=== PATIENT | female | born 1985 | race Caucasian/White ===

== ENCOUNTER 2017-02-22 11:12 | Inpatient (IN) | payer OTHER ==
[2017-02-22 11:48] VITALS: BMI 33.5
[2017-02-22] MEDS ORDERED: METHADONE HCL 10 MG TABLET (FOR DETOX USE ONLY) PO ONE ×2 (13:20→23:00)
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
[2017-02-22] MEDS ORDERED: P-EPHED 60MG/TRIPROLIDI 2.5MG TABLET PO PRN (14:25)
[2017-02-22] MEDS ORDERED: MAGNESIUM CITRATE 300 ML BOTTLE PO PRN (14:25)
[2017-02-22] MEDS ORDERED: LOPERAMIDE HCL 2 MG CAPSULE PO PRN (14:25)
[2017-02-22] MEDS ORDERED: NICOTINE POLACRILEX 2 MG GUM BUC PRN (14:25)
[2017-02-22] MEDS ORDERED: MAGNESIUM HYDROX 2400MG/30ML ORAL SUSPENSION 30 ML CUP PO PRN (14:25)
[2017-02-22] MEDS ORDERED: ACETAMINOPHEN 325 MG TABLET (FP) PO PRN (14:25)
[2017-02-22] MEDS ORDERED: guaiFENesin/D-METHORPHAN HB 10 ML UNIT-DOSE CUPS PO PRN (14:25)
[2017-02-22] MEDS ORDERED: diphenhydrAMINE HCL 50 MG CAPSULE PO PRN (14:25)
[2017-02-22] MEDS ORDERED: MAG HYDROX/AL HYDROX/SIMETH 30 ML UNIT-DOSE CUP PO PRN (14:25)
[2017-02-22] MEDS ORDERED: MENTHOL/PHENOL 1 EACH UD MM PRN (14:25)
[2017-02-22] MEDS ORDERED: diazePAM 5 MG TABLET PO ONE (15:19)
[2017-02-22] MEDS ORDERED: METHADONE HCL 10 MG TABLET (FOR DETOX USE ONLY) ONE (15:45)
[2017-02-22] MEDS: hydrOXYzine PAMOATE 50 MG CAPSULE (FP) PO PRN (15:48)
[2017-02-22 18:40] LABS: HIV 1 & 2 AB NEGATIVE; HIV 1 AGp24 NEGATIVE
[2017-02-22 21:56] LABS: URINE APPEARANCE CLOUDY; URINE BILIRUBIN NEGATIVE (NEGATIVE); URINE BLOOD NEGATIVE (NEGATIVE); URINE COLOR YELLOW; URINE GLUCOSE (UA) NEGATIVE (NEGATIVE); URINE KETONE NEGATIVE (NEGATIVE); URINE LEUK ESTERASE NEGATIVE (NEGATIVE); URINE NITRITE NEGATIVE (NEGATIVE); URINE PROTEIN NEGATIVE (NEGATIVE); URINE UROBILINOGEN NEGATIVE mg/dL (0.2-1.0)
[2017-02-22] MEDS: THIAMINE HCL 100 MG TABLET (FP) PO SCH (22:15)
[2017-02-22] MEDS: diazePAM 5 MG TABLET PO SCH (22:15)
[2017-02-23] MEDS: diazePAM 5 MG TABLET PO SCH ×4 (05:08→22:09)
[2017-02-23 09:43] LABS: MCHC 33.5 g/dl (32.0-36.0); MEAN CELL VOLUME 89.5 fl (80-96); MEAN PLT VOLUME 8.8 fl (7.5-11.1); PLATELET COUNT 311 K/MM3 (134-434); RDW 14.5 % (11.6-15.6); WHITE BLOOD COUNT 7.2 K/mm3 (4.0-10.0)
--- NOTE | 2017-02-23 09:57 | EKG ---
Test Reason : Blood Pressure : / mmHG Vent. Rate : 073 BPM Atrial Rate : 073 BPM P-R Int : 144 ms QRS Dur : 074 ms QT Int : 382 ms P-R-T Axes : 055 032 035 degrees QTc Int : 420 ms NORMAL SINUS RHYTHM NORMAL ECG NO PREVIOUS ECGS AVAILABLE Confirmed by NAMAN KRISHNAMURTHY MD ([id number]) on 02/23/2017 9:56:45 AM Referred By: Confirmed By:NAMAN KRISHNAMURTHY MD
[2017-02-23] MEDS ORDERED: METHADONE HCL 10 MG TABLET (FOR DETOX USE ONLY) PO SCH (10:00)
[2017-02-23 10:06] LABS: ALBUMIN 3.7 g/dl (3.4-5.0); ALK PHOS 70 U/L (45-117); ANION GAP 6 (8-16); BILIRUBIN,TOTAL 0.3 mg/dL (0.2-1.0); CALCIUM 8.8 mg/dL (8.5-10.1); CO2 27 mmol/L (21-32); CREATININE 0.7 mg/dL (0.55-1.02); GLUCOSE,RANDOM 73 mg/dL (74-106); SGOT/AST 16 U/L (15-37); SGPT/ALT 44 U/L (12-78); TOT PROT 7.6 g/dl (6.4-8.2)
[2017-02-23] MEDS: diazePAM 5 MG TABLET PO PRN ×2 (10:16→14:35)
[2017-02-23] MEDS: PRENATAL VITAMINS W/ FOLIC ACID TABLET (FP) PO SCH (10:16)
--- NOTE | 2017-02-23 10:19 | PN ---
[facility] CIWA - CIWA Score Nausea/Vomitin Muscle Tremors: 3 Anxiety: 3 Agitation: 2 Paroxysmal Sweats: 1-Minimal Palms Moist Orientation: 0-Oriented Tacttile Disturbances: 1-Very Mild Itch/Numbness Auditory Disturbances: 1-Very Mild Visual Disturbances: 1-Very Mild Sensitivity Headache: 2-Mild CIWA-Ar Total Score: 17 BHS COWS - Scale Resting Pulse: 0= [place] 80 or Below Sweatin= Chills/Flushing Restless Observation: 3= Extraneous Movement Pupil Size: 1= Pupils >than Normal Bone or Joint Aches: 2= Severe Diffuse Aches Runny Nose/ Eye Tearin= Runny Nose/Eyes GI Upset > 30mins: 3= Vomiting/Diarrhea Tremor Observation of Outstretched Hands: 2= Slight Tremor Visible Yawning Observation: 1= 1-2x During Session Anxiety or Irritability: 2=Irritable/Anxious Goose Flesh Skin: 0=Smooth Skin COWS Score: 17 S Progress Note (SOAP) Subjective: alert,irritable,anxious,interrupted sleep,tremor,pain in the body and back Objective: 02/23/17 10:17 Vital Signs Temperature 97.7 F 02/23/17 06:00 Pulse Rate 72 02/23/17 06:00 Respiratory Rate 18 02/23/17 06:00 Blood Pressure 99/69 02/23/17 06:00 O2 Sat by Pulse Oximetry (%) ekg nsr,normal ecg Laboratory Last Values WBC 7.2 K/mm3 (4.0-10.0) 02/23/17 06:00 RBC 4.33 M/mm3 (3.60-5.2) 02/23/17 06:00 Hgb 13.0 GM/dL (10.7-15.3) 02/23/17 06:00 Hct 38.7 % (32.4-45.2) 02/23/17 06:00 MCV 89.5 fl (80-96) 02/23/17 06:00 MCH 30.0 pg (25.7-33.7) 02/23/17 06:00 MCHC 33.5 g/dl (32.0-36.0) 02/23/17 06:00 RDW 14.5 % (11.6-15.6) 02/23/17 06:00 Plt Count 311 K/MM3 (134-434) 02/23/17 06:00 MPV 8.8 fl (7.5-11.1) 02/23/17 06:00 Urine Color Yellow 02/22/17 21:00 Urine Appearance Cloudy 02/22/17 21:00 Urine pH 5.0 (5.0-8.0) 02/22/17 21:00 Ur Specific [place] >= 1.030 (1.005-1.025) H 02/22/17 21:00 Urine Protein Negative (NEGATIVE) 02/22/17 21:00 Urine Glucose (UA) Negative (NEGATIVE) 02/22/17 21:00 Urine Ketones Negative (NEGATIVE) 02/22/17 21:00 Urine Blood Negative (NEGATIVE) 02/22/17 21:00 Urine Nitrite Negative (NEGATIVE) 02/22/17 21:00 Urine Bilirubin Negative (NEGATIVE) 02/22/17 21:00 Urine Urobilinogen Negative mg/dL (0.2-1.0) 02/22/17 21:00 HIV 1&2 Antibody Screen Negative 02/22/17 14:00 HIV P24 Antigen Negative 02/22/17 14:00 labs pending Assessment: 02/23/17 10:18 withdrawal symptom Plan: continue detox
[2017-02-23] MEDS: hydrOXYzine PAMOATE 50 MG CAPSULE (FP) PO PRN (13:15)
--- NOTE | 2017-02-23 13:32 | PN ---
BHS Progress Note Note: patient complaint of epigastric pain, ekg nsr,normal ecg protonix 40 mgs po daily close monitoring
[2017-02-23] MEDS: PANTOPRAZOLE 40 MG TABLET (FP) PO SCH (14:34)
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
[2017-02-23] MEDS: traZODone HCL 50 MG TABLET (FP) PO SCH (22:09)
[2017-02-23] MEDS: THIAMINE HCL 100 MG TABLET (FP) PO SCH (22:10)
[2017-02-24] MEDS: PANTOPRAZOLE 40 MG TABLET (FP) PO SCH (10:17)
[2017-02-24] MEDS: PRENATAL VITAMINS W/ FOLIC ACID TABLET (FP) PO SCH (10:17)
[2017-02-24] MEDS: METHADONE HCL 5 MG TABLET (FOR DETOX USE ONLY) PO SCH (10:17)
[2017-02-24] MEDS: hydrOXYzine PAMOATE 50 MG CAPSULE (FP) PO PRN (10:17)
[2017-02-24] MEDS: diazePAM 5 MG TABLET PO SCH ×2 (10:18→22:23)
--- NOTE | 2017-02-24 10:40 | PN ---
S CIWA - CIWA Score Nausea/Vomitin Muscle Tremors: 3 Anxiety: 3 Agitation: 3 Paroxysmal Sweats: 1-Minimal Palms Moist Orientation: 0-Oriented Tacttile Disturbances: 1-Very Mild Itch/Numbness Auditory Disturbances: 1-Very Mild Visual Disturbances: 1-Very Mild Sensitivity Headache: 2-Mild CIWA-Ar Total Score: 18 BHS COWS - Scale Resting Pulse: 0= [place] 80 or Below Sweatin= Chills/Flushing Restless Observation: 3= Extraneous Movement Pupil Size: 1= Pupils >than Normal Bone or Joint Aches: 2= Severe Diffuse Aches Runny Nose/ Eye Tearin= Runny Nose/Eyes GI Upset > 30mins: 2= Nausea/Diarrhea Tremor Observation of Outstretched Hands: 2= Slight Tremor Visible Yawning Observation: 1= 1-2x During Session Anxiety or Irritability: 2=Irritable/Anxious Goose Flesh Skin: 0=Smooth Skin COWS Score: 16 S Progress Note (SOAP) Subjective: ALERT,IRRITABLE,ANXIOUS,INTERRUPTED SLEEP,PAIN IN THE BODY AND THIGH Objective: 02/24/17 10:40 Vital Signs Temperature 97.7 F 02/24/17 10:32 Pulse Rate 77 02/24/17 10:32 Respiratory Rate 18 02/24/17 10:32 Blood Pressure 102/54 02/24/17 10:32 O2 Sat by Pulse Oximetry (%) Laboratory Last Values WBC 7.2 K/mm3 (4.0-10.0) 02/23/17 06:00 RBC 4.33 M/mm3 (3.60-5.2) 02/23/17 06:00 Hgb 13.0 GM/dL (10.7-15.3) 02/23/17 06:00 Hct 38.7 % (32.4-45.2) 02/23/17 06:00 MCV 89.5 fl (80-96) 02/23/17 06:00 MCH 30.0 pg (25.7-33.7) 02/23/17 06:00 MCHC 33.5 g/dl (32.0-36.0) 02/23/17 06:00 RDW 14.5 % (11.6-15.6) 02/23/17 06:00 Plt Count 311 K/MM3 (134-434) 02/23/17 06:00 MPV 8.8 fl (7.5-11.1) 02/23/17 06:00 Sodium 138 mmol/L (136-145) 02/23/17 06:00 Potassium 4.0 mmol/L (3.5-5.1) 02/23/17 06:00 Chloride 105 mmol/L (98-107) 02/23/17 06:00 Carbon Dioxide 27 mmol/L (21-32) 02/23/17 06:00 Anion Gap 6 (8-16) L 02/23/17 06:00 BUN 8 mg/dL (7-18) 02/23/17 06:00 Creatinine 0.7 mg/dL (0.55-1.02) 02/23/17 06:00 Creat Clearance w eGFR > 60 (>60) 02/23/17 06:00 Random Glucose 73 mg/dL (74-106) L 02/23/17 06:00 Calcium 8.8 mg/dL (8.5-10.1) 02/23/17 06:00 Total Bilirubin 0.3 mg/dL (0.2-1.0) 02/23/17 06:00 AST 16 U/L (15-37) 02/23/17 06:00 ALT 44 U/L (12-78) 02/23/17 06:00 Alkaline Phosphatase 70 U/L (45-117) 02/23/17 06:00 Total Protein 7.6 g/dl (6.4-8.2) 02/23/17 06:00 Albumin 3.7 g/dl (3.4-5.0) 02/23/17 06:00 Urine Color Yellow 02/22/17 21:00 Urine Appearance Cloudy 02/22/17 21:00 Urine pH 5.0 (5.0-8.0) 02/22/17 21:00 Ur Specific [place] >= 1.030 (1.005-1.025) H 02/22/17 21:00 Urine Protein Negative (NEGATIVE) 02/22/17 21:00 Urine Glucose (UA) Negative (NEGATIVE) 02/22/17 21:00 Urine Ketones Negative (NEGATIVE) 02/22/17 21:00 Urine Blood Negative (NEGATIVE) 02/22/17 21:00 Urine Nitrite Negative (NEGATIVE) 02/22/17 21:00 Urine Bilirubin Negative (NEGATIVE) 02/22/17 21:00 Urine Urobilinogen Negative mg/dL (0.2-1.0) 02/22/17 21:00 RPR Titer Nonreactive (NONREACTIVE) 02/23/17 06:00 HIV 1&2 Antibody Screen Negative 02/22/17 14:00 HIV P24 Antigen Negative 02/22/17 14:00 Assessment: 02/24/17 10:41 WITHDRAWAL SYMPTOM Plan: CONTINUE DETOX
[2017-02-24] MEDS: IBUPROFEN 400 MG TABLET (FP) PO PRN (11:32)
--- NOTE | 2017-02-24 13:08 | EKG ---
Test Reason : Blood Pressure : / mmHG Vent. Rate : 061 BPM Atrial Rate : 061 BPM P-R Int : 146 ms QRS Dur : 072 ms QT Int : 390 ms P-R-T Axes : 012 021 027 degrees QTc Int : 392 ms NORMAL SINUS RHYTHM NORMAL ECG WHEN COMPARED WITH ECG OF 22-FEB-2017 15:23, NO SIGNIFICANT CHANGE WAS FOUND Confirmed by NAMAN KRISHNAMURTHY MD ([id number]) on 02/24/2017 1:08:08 PM Referred By: Confirmed By:NAMAN KRISHNAMURTHY MD
[2017-02-24] MEDS: CYCLOBENZAPRINE HCL 10 MG TABLET (FP) PO SCH ×2 (13:43→22:23)
[2017-02-24] MEDS: diazePAM 5 MG TABLET PO PRN (13:43)
[2017-02-24] MEDS: traZODone HCL 50 MG TABLET (FP) PO SCH (22:23)
[2017-02-24] MEDS: THIAMINE HCL 100 MG TABLET (FP) PO SCH (22:23)
[2017-02-25] MEDS: CYCLOBENZAPRINE HCL 10 MG TABLET (FP) PO SCH ×3 (05:52→22:14)
[2017-02-25] MEDS: PANTOPRAZOLE 40 MG TABLET (FP) PO SCH (10:29)
[2017-02-25] MEDS: PRENATAL VITAMINS W/ FOLIC ACID TABLET (FP) PO SCH (10:29)
[2017-02-25] MEDS: METHADONE HCL 5 MG TABLET (FOR DETOX USE ONLY) PO SCH (10:30)
[2017-02-25] MEDS: diazePAM 5 MG TABLET PO SCH ×2 (10:30→22:14)
--- NOTE | 2017-02-25 11:15 | PN ---
BHS Progress Note (SOAP) Subjective: ALERT,IRRITABLE,ANXIOUS,INTERRUPTED SLEEP,PAIN IN THE BODY AND BACK Objective: 02/25/17 11:14 Vital Signs Temperature 97.5 F L 02/25/17 11:05 Pulse Rate 81 02/25/17 11:05 Respiratory Rate 20 02/25/17 11:05 Blood Pressure 88/58 02/25/17 11:05 O2 Sat by Pulse Oximetry (%) Assessment: 02/25/17 11:14 WITHDRAWAL SYMPTOM Plan: CONTINUE DETOX
[2017-02-25] MEDS: IBUPROFEN 400 MG TABLET (FP) PO PRN (11:20)
[2017-02-25] MEDS: hydrOXYzine PAMOATE 50 MG CAPSULE (FP) PO PRN (12:54)
[2017-02-25] MEDS: traZODone HCL 50 MG TABLET (FP) PO SCH (22:14)
[2017-02-25] MEDS: THIAMINE HCL 100 MG TABLET (FP) PO SCH (22:15)
[2017-02-26] MEDS: CYCLOBENZAPRINE HCL 10 MG TABLET (FP) PO SCH ×3 (05:20→22:12)
[2017-02-26] MEDS: hydrOXYzine PAMOATE 50 MG CAPSULE (FP) PO PRN (05:21)
--- NOTE | 2017-02-26 09:34 | PN ---
BHS Progress Note (SOAP) Subjective: alert,irritable,anxious,interrupted sleep,tremor,pain in the body and back Objective: 02/26/17 09:33 Vital Signs Temperature 98.2 F 02/26/17 09:13 Pulse Rate 97 H 02/26/17 09:13 Respiratory Rate 18 02/26/17 09:13 Blood Pressure 103/61 02/26/17 09:13 O2 Sat by Pulse Oximetry (%) Assessment: 02/26/17 09:33 withdrawal symptom Plan: continue detox,discharge in am
[2017-02-26] MEDS ORDERED: diazePAM 5 MG TABLET PO SCH (10:00)
[2017-02-26] MEDS ORDERED: METHADONE HCL 10 MG TABLET (FOR DETOX USE ONLY) PO SCH (10:00)
[2017-02-26] MEDS: PANTOPRAZOLE 40 MG TABLET (FP) PO SCH (10:06)
[2017-02-26] MEDS: PRENATAL VITAMINS W/ FOLIC ACID TABLET (FP) PO SCH (10:06)
[2017-02-26] MEDS ORDERED: IBUPROFEN 600 MG TABLET (FP) PO PRN (10:59)
[2017-02-26] MEDS: traZODone HCL 50 MG TABLET (FP) PO SCH (22:12)
[2017-02-26] MEDS: THIAMINE HCL 100 MG TABLET (FP) PO SCH (22:12)
[2017-02-27] MEDS: CYCLOBENZAPRINE HCL 10 MG TABLET (FP) PO SCH (05:15)
[2017-02-27] MEDS ORDERED: METHADONE HCL 5 MG TABLET (FOR DETOX USE ONLY) PO SCH (06:00)
--- NOTE | 2017-02-27 08:04 | DS ---
[facility] Detox Discharge Summary Admission Date: 02/22/17 Discharge Date: 02/27/17 - History Present History: Cannabis Dependence, Cocaine Dependence, Opioid Dependence, Sedative Dependence Additional Comments: FOLLOW UP WITH AFTER CARE PROGRAM ARRANGEMENT Pertinent Past History: BIPOLAR DISORDER DEPRESSION - Physical Exam Results Vital Signs: Vital Signs Temperature 98.1 F 02/27/17 06:00 Pulse Rate 78 02/27/17 06:00 Respiratory Rate 18 02/27/17 06:00 Blood Pressure 105/64 02/27/17 06:00 O2 Sat by Pulse Oximetry (%) Pertinent Admission Physical Exam Findings: WITHDRAWAL SYMPTOM - Treatment Hospital Course: Detox Protocol Followed, Detoxed Safely, Responded well, Discharged Condition Good Patient has Accepted a Rehab Referral to: DECLINED - Medication Discharge Medications: Ambulatory Orders NK [No Known Home Medication] 02/22/17 - Diagnosis (1) Opioid dependence with withdrawal Current Visit: Yes Status: Acute (2) Alcohol dependence with uncomplicated withdrawal Current Visit: Yes Status: Acute (3) Uncomplicated sedative, hypnotic or anxiolytic withdrawal Current Visit: Yes Status: Acute (4) Cocaine dependence Current Visit: Yes Status: Acute (5) Cannabis dependence Current Visit: Yes Status: Acute (6) Bipolar disorder Current Visit: Yes Status: Chronic (7) Depression Current Visit: Yes Status: Acute (8) Nicotine dependence Current Visit: Yes Status: Acute (9) History of section Current Visit: Yes Status: Acute - AMA Did Patient Leave Against Medical Advice: No
[2017-02-27] MEDS: PRENATAL VITAMINS W/ FOLIC ACID TABLET (FP) PO SCH (09:54)
[2017-02-27] MEDS: PANTOPRAZOLE 40 MG TABLET (FP) PO SCH (09:54)
[2017-02-27 10:24] VITALS: BP 99/64; PULSE 88; TEMP 97.7
== END 2017-02-27 10:10 | disposition home or self-care (01) | DRG 773 ==
LOC: YASAS 11:12 → Y6N 14:12
PROVIDERS: ADMIT Internal Medicine; ATTEND Internal Medicine
PROC: HZ2ZZZZ Detoxification Services for Substance Abuse Treatment (ICD-10-PCS; principal; 2017-02-22)
DX: F11.23 Opioid dependence with withdrawal (principal); F13.230 Sedative, hypnotic or anxiolytic dependence with withdrawal, uncomplicated; F10.230 Alcohol dependence with withdrawal, uncomplicated; F14.20 Cocaine dependence, uncomplicated; F12.20 Cannabis dependence, uncomplicated; F17.210 Nicotine dependence, cigarettes, uncomplicated; F31.9 Bipolar disorder, unspecified; F19.24 Other psychoactive substance dependence with psychoactive substance-induced mood disorder; G47.00 Insomnia, unspecified; Z91.5 Personal history of self-harm
CPT/HCPCS: 36415; 80053; 81003; 85027; 86593; 87389; 93005; 93010

== ENCOUNTER 2017-05-18 14:18 | Inpatient (IN) | payer OTHER ==
[2017-05-18 16:14] VITALS: BMI 31.1
--- NOTE | 2017-05-18 17:39 | HP ---
COWS - Scale Resting Pulse: 2= [place] 101-120 Sweatin= Chills/Flushing Restless Observation: 1= Difficult to Sit Still Pupil Size: 0= Normal to Room Light Bone or Joint Aches: 2= Severe Diffuse Aches Runny Nose/ Eye Tearin= Nasal Congestion GI Upset > 30mins: 1= Stomach Cramp Tremor Observation: 2= Slight Tremor Visible Yawning Observation: 1= 1-2x During Session Anxiety or Irritability: 2=Irritable/Anxious Goose Flesh Skin: 3=Piloerection COWS Score: 16 CIWA Score - CIWA Score Nausea/Vomitin-No Nausea/No Vomiting Muscle Tremors: 3 Anxiety: 4-Mod. Anxious/Guarded Agitation: 2 Paroxysmal Sweats: 3 Orientation: 0-Oriented Tacttile Disturbances: 2-Mild Itch/Numbness/Burn Auditory Disturbances: 0-None Visual Disturbances: 2-Mild Sensitivity Headache: 2-Mild CIWA-Ar Total Score: 18 Admission ROS BHS - HPI Chief Complaint: "I want to get better and I want to get out of this. I don't want to be an addict anymore." Patient is here to Detox from Heroin and Alcohol. Allergies/Adverse Reactions: Allergies Allergy/AdvReac Type Severity Reaction Status Date / Time No Known Allergies Allergy Verified 05/18/17 17:00 History of Present Illness: Pt. is a 31 YO female here to Detox from Heroin and Alcohol. Patient had 1 previous Detox admission at [facility] in 01/2017. Exam Limitations: No Limitations - Ebola screening Have you traveled outside of the country in the last 21 days: No (N) Have you had contact with anyone from an Ebola affected area: No Have you been sick,other than usual withdrawal symptoms: No Do you have a fever: No - Review of Systems Constitutional: Chills, Diaphoresis, Fever, Loss of Appetite, Malaise, Night Sweats, Changes in sleep, Unintentional Wgt. Loss (Lost approx.40 lbs.over last 4 months.) EENT: reports: Nose Congestion, Sinus Pressure Respiratory: reports: No Symptoms reported Cardiac: reports: No Symptoms Reported GI: reports: Constipated, Poor Appetite, Abdominal cramping : reports: No Symptoms Reported Musculoskeletal: reports: No Symptoms Reported Integumentary: reports: No Symptoms Reported Neuro: reports: Headache, Tremors Endocrine: reports: No Symptoms Reported Hematology: reports: No Symptoms Reported Psychiatric: reports: Judgement Intact, Mood/Affect Appropiate, Orientated x3, Anxious, Depressed (Meds.in past, none currently.) Other Systems: Reviewed and Negative Patient History - Patient Medical History Hx Anemia: No Hx Asthma: No Hx Chronic Obstructive Pulmonary Disease (COPD): No Hx Cancer: No Hx Cardiac Disorders: No Hx Congestive Heart Failure: No Hx Hypertension: No Hx Hypercholesterolemia: No Hx Pacemaker: No HX Cerebrovascular Accident: No Hx Seizures: No Hx Dementia: No Hx Diabetes: No Hx Gastrointestinal Disorders: No Hx Liver Disease: No Hx Genitourinary Disorders: No Hx Sexually Transmitted Disorders: No Hx Renal Disease (ESRD): No Hx Thyroid Disease: No Hx Human Immunodeficiency Virus (HIV): No (last 01/11 negative) Hx Hepatitis C: No (Uncertain if ever tested.) Hx Depression: Yes (Meds. in past, none currently.) Hx Suicide Attempt: No (PATIENT DENIES CURRENT SI / HI.) Hx Bipolar Disorder: Yes (Meds. in past, none currently.) Hx Schizophrenia: No Other Medical History: DENIES. - Patient Surgical History Past Surgical History: Yes Hx Neurologic Surgery: No Hx Cataract Extraction: No Hx Cardiac Surgery: No Hx Lung Surgery: No Hx Breast Surgery: No Hx Breast Biopsy: No Hx Abdominal Surgery: No Hx Appendectomy: No Hx Cholecystectomy: No Hx Genitourinary Surgery: No Hx Section: Yes (x 2 (2000, 2005).) Hx Orthopedic Surgery: No Hx Hysterectomy: No Anesthesia Reaction: No - PPD History Previous Implant?: Yes Documented Results: Negative w/proof Implanted On Prior [facility] Admission?: Yes Date: 02/24/17 Results: 0.0 PPD to be Administered?: No - Reproductive History Patient is a Female of Child Bearing Age (11 -55 yrs old): Yes Last Menstrual Period: 05/17/17 Patient : No - Smoking Cessation Smoking history: Current every day smoker Have you smoked in the past 12 months: Yes Aproximately how many cigarettes per day: 7 Cigars Per Day: 0 Hx Chewing Tobacco Use: No Initiated information on smoking cessation: Yes 'Breaking Loose' booklet given: 05/18/17 (GIVE ON UNIT.) - Substance & Tx. History Hx Alcohol Use: Yes Hx Substance Use: Yes Substance Use Type: Alcohol, Cocaine, Heroin, Opiates, Tranquilizers Hx Substance Use Treatment: Yes (! Previous Detox adnission at [facility] (01/2017).) - Substances Abused Alprazolam (Xanax) Route: Oral Frequency: Daily Amount used: 5 mg Age of first use: 24 Date of Last Use: 05/11/17 Crack Route: Smoking Frequency: Daily Amount used: $ 100 Age of first use: 26 Date of Last Use: 05/17/17 Alcohol Route: Oral Frequency: Daily Amount used: 6 pack of beer Age of first use: 13 Date of Last Use: 05/18/17 Heroin Route: Inhalation Frequency: Daily Amount used: 15 Age of first use: 26 Date of Last Use: 05/16/17 percocet Route: Oral Frequency: 3-6 times per week Amount used: 10 mg Age of first use: 26 Date of Last Use: 05/15/17 Family Disease History - Family Disease History Family Disease History: Heart Disease: Grandparent (HTN.), Mother (HTN; Rheumatoid Arthritis.), [place]: Grandparent, Other: Father (Substance Use History.) , Mother, Brother (Autism.) Admission Physical Exam S - Vital Signs Vital Signs: Vital Signs - 24 hr 05/18/17 16:11 Temperature 97.5 F L Pulse Rate 106 H Respiratory 18 Rate Blood Pressure 112/67 - Physical General Appearance: Yes: No Apparent Distress, Nourished, Appropriately Dressed , Tremorous, Anxious HEENTM: Yes: Hearing grossly Normal, Normocephalic, Normal Voice, BACILIO, Pharynx Normal Respiratory: Yes: Chest Non-Tender, Lungs Clear, No Respiratory Distress, No Accessory Muscle Use Neck: Yes: No masses,lesions,Nodules, Supple, Trachea in good position Breast: Yes: Breast Exam Deferred Cardiology: Yes: Regular Rhythm, Regular Rate, S1, S2 Abdominal: Yes: Normal Bowel Sounds, Non Tender, Soft, Protuberent Genitourinary: Yes: Within Normal Limits Back: Yes: Normal Inspection Musculoskeletal: Yes: full range of Motion, Gait Steady Extremities: Yes: Normal Capillary Refill, Normal Range of Motion, Non-Tender, Tremors Neurological: Yes: Fully Oriented, Alert, Normal Mood/Affect, Normal Response Integumentary: Yes: Normal Color, Dry, Warm Lymphatic: Yes: Within Normal Limits - Diagnostic (1) Sedative, hypnotic or anxiolytic dependence, uncomplicated Current Visit: Yes Status: Chronic (2) Cocaine dependence, uncomplicated Current Visit: Yes Status: Acute (3) Alcohol dependence with uncomplicated withdrawal Current Visit: Yes Status: Acute (4) Depression Current Visit: Yes Status: Suspected Qualifiers: Depression Type: unspecified Qualified Code(s): F32.9 - Major depressive disorder, single episode, unspecified (5) History of section Current Visit: Yes Status: Resolved (6) Insomnia Current Visit: Yes Status: Chronic Qualifiers: Insomnia type: unspecified Qualified Code(s): G47.00 - Insomnia, unspecified (7) Nicotine dependence Current Visit: Yes Status: Chronic Qualifiers: Nicotine product type: cigarettes Substance use status: uncomplicated Qualified Code(s): F17.210 - Nicotine dependence, cigarettes, uncomplicated (8) Opioid dependence with withdrawal Current Visit: Yes Status: Acute (9) Bipolar disorder Current Visit: Yes Status: Chronic Qualifiers: Active/Remission status: remission status unspecified Qualified Code(s): F31.9 - Bipolar disorder, unspecified Comment: According to self-report.Outstanding history of non-adherence to OPD care. Cleared for Admission S - Detox or Rehab [facility] Level of Care: Medically Managed Detox Regimen/Protocol: Methadone/Librium S Breath Alcohol Content Breath Alcohol Content: 0 Urine Pregancy Test - Result Urine Test Results: Negative- NO Line Present Urine Drug Screen - Results Drug Screen Negative: No Urine Drug Screen Results: THC-Marijuana, MAHSA-Cocaine, OPI-Opiates, TCA- Tricyclic Antidepress
[2017-05-18] MEDS ORDERED: P-EPHED 60MG/TRIPROLIDI 2.5MG TABLET PO PRN (18:06)
[2017-05-18] MEDS ORDERED: MAGNESIUM HYDROX 2400MG/30ML ORAL SUSPENSION 30 ML CUP PO PRN (18:06)
[2017-05-18] MEDS ORDERED: ACETAMINOPHEN 325 MG TABLET (FP) PO PRN (18:06)
[2017-05-18] MEDS ORDERED: MAG HYDROX/AL HYDROX/SIMETH 30 ML UNIT-DOSE CUP PO PRN (18:06)
[2017-05-18] MEDS ORDERED: NICOTINE POLACRILEX 2 MG GUM BC PRN (18:06)
[2017-05-18] MEDS ORDERED: guaiFENesin/D-METHORPHAN HB 10 ML UNIT-DOSE CUPS PO PRN (18:06)
[2017-05-18] MEDS ORDERED: MENTHOL/PHENOL 1 EACH UD MM PRN (18:06)
[2017-05-18] MEDS ORDERED: LOPERAMIDE HCL 2 MG CAPSULE PO PRN (18:06)
[2017-05-18] MEDS ORDERED: MAGNESIUM CITRATE 300 ML BOTTLE PO PRN (18:06)
[2017-05-18] MEDS ORDERED: METHADONE HCL 10 MG TABLET (FOR DETOX USE ONLY) PO ONE ×2 (18:45→23:00)
[2017-05-18] MEDS ORDERED: chlordiazePOXIDE HCL 25 MG CAPSULE PO ONE (18:45)
[2017-05-18] MEDS: THIAMINE HCL 100 MG TABLET (FP) PO SCH (22:26)
[2017-05-18] MEDS: chlordiazePOXIDE HCL 25 MG CAPSULE PO SCH (22:26)
[2017-05-19] MEDS: chlordiazePOXIDE HCL 25 MG CAPSULE PO PRN (03:47)
[2017-05-19] MEDS: chlordiazePOXIDE HCL 25 MG CAPSULE PO SCH ×4 (05:38→22:06)
[2017-05-19] MEDS ORDERED: METHADONE HCL 10 MG TABLET (FOR DETOX USE ONLY) PO SCH (10:00)
[2017-05-19 10:19] LABS: MCH 29.7 pg (25.7-33.7); MCHC 32.6 g/dl (32.0-36.0); MEAN CELL VOLUME 91.4 fl (80-96); MEAN PLT VOLUME 8.5 fl (7.5-11.1); PLATELET COUNT 300 K/MM3 (134-434); RDW 13.7 % (11.6-15.6); WHITE BLOOD COUNT 7.7 K/mm3 (4.0-10.0)
[2017-05-19 10:27] LABS: CALCIUM 9.3 mg/dL (8.5-10.1)
[2017-05-19 10:33] LABS: ALBUMIN 3.3 g/dl (3.4-5.0); ALK PHOS 72 U/L (45-117); ANION GAP 7 (8-16); BILIRUBIN,TOTAL 0.3 mg/dL (0.2-1.0); CO2 28 mmol/L (21-32); CREATININE 0.7 mg/dL (0.55-1.02); GLUCOSE,RANDOM 73 mg/dL (74-106); SGOT/AST 8 U/L (15-37); SGPT/ALT 18 U/L (12-78); TOT PROT 6.8 g/dl (6.4-8.2)
[2017-05-19] MEDS: PRENATAL VITAMINS W/ FOLIC ACID TABLET (FP) PO SCH (10:34)
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
[2017-05-19] MEDS: IBUPROFEN 400 MG TABLET (FP) PO PRN (17:40)
--- NOTE | 2017-05-19 19:30 | PN ---
[facility] CIWA - CIWA Score Nausea/Vomitin-No Nausea/No Vomiting Muscle Tremors: 3 Anxiety: 4-Mod. Anxious/Guarded Agitation: 3 Paroxysmal Sweats: 3 Orientation: 0-Oriented Tacttile Disturbances: 1-Very Mild Itch/Numbness Auditory Disturbances: 0-None Visual Disturbances: 0-None Headache: 0-None Present CIWA-Ar Total Score: 14 BHS COWS - Scale Resting Pulse: 1= [place] 81-100 Sweatin=Flushed/Facial Moisture Restless Observation: 1= Difficult to Sit Still Pupil Size: 0= Normal to Room Light Bone or Joint Aches: 2= Severe Diffuse Aches Runny Nose/ Eye Tearin= Runny Nose/Eyes GI Upset > 30mins: 2= Nausea/Diarrhea Tremor Observation of Outstretched Hands: 2= Slight Tremor Visible Yawning Observation: 1= 1-2x During Session Anxiety or Irritability: 2=Irritable/Anxious Goose Flesh Skin: 0=Smooth Skin COWS Score: 15 S Progress Note (SOAP) Subjective: Anxiety,sweating,interrupted sleep,restless,body aches Objective: 05/19/17 19:27 Vital Signs - 8 hr 05/19/17 15:44 Temperature 98.1 F Pulse Rate 88 Respiratory 18 Rate Blood Pressure 110/78 Laboratory Tests 05/19/17 05/19/17 05/19/17 07:50 07:50 07:50 WBC 7.7 RBC 4.74 Hgb 14.1 Hct 43.3 MCV 91.4 MCH 29.7 MCHC 32.6 RDW 13.7 Plt Count 300 MPV 8.5 Sodium 142 Potassium 4.8 Chloride 107 Carbon Dioxide 28 Anion Gap 7 L BUN 13 D Creatinine 0.7 Creat Clearance w eGFR > 60 Random Glucose 73 L Calcium 9.3 Total Bilirubin 0.3 AST 8 L D ALT 18 D Alkaline Phosphatase 72 Total Protein 6.8 Albumin 3.3 L RPR Titer Nonreactive labs noted Assessment: 05/19/17 19:29 Withdrawal sx. Plan: Continue detox
[2017-05-19] MEDS ORDERED: OLANZapine 10 MG TABLET PO SCH (22:00)
[2017-05-19] MEDS: THIAMINE HCL 100 MG TABLET (FP) PO SCH (22:06)
[2017-05-19] MEDS: traZODone HCL 50 MG TABLET (FP) PO SCH (22:06)
[2017-05-19] MEDS: OLANZapine 7.5 MG TABLET PO SCH (23:09)
[2017-05-20] MEDS: chlordiazePOXIDE HCL 25 MG CAPSULE PO SCH ×3 (05:39→17:17)
[2017-05-20] MEDS: METHADONE HCL 5 MG TABLET (FOR DETOX USE ONLY) PO SCH (10:11)
[2017-05-20] MEDS: PRENATAL VITAMINS W/ FOLIC ACID TABLET (FP) PO SCH (10:11)
[2017-05-20] MEDS: chlordiazePOXIDE HCL 25 MG CAPSULE PO PRN (13:12)
[2017-05-20 14:49] LABS: URINE APPEARANCE CLOUDY; URINE BILIRUBIN NEGATIVE (NEGATIVE); URINE BLOOD 2+ (NEGATIVE); URINE COLOR YELLOW; URINE GLUCOSE (UA) NEGATIVE (NEGATIVE); URINE KETONE NEGATIVE (NEGATIVE); URINE NITRITE NEGATIVE (NEGATIVE); URINE PROTEIN NEGATIVE (NEGATIVE); URINE UROBILINOGEN NEGATIVE mg/dL (0.2-1.0)
[2017-05-20 14:52] LABS: URINE LEUK ESTERASE 2+ (NEGATIVE)
--- NOTE | 2017-05-20 14:54 | PN ---
[facility] CIWA - CIWA Score Nausea/Vomitin-No Nausea/No Vomiting Muscle Tremors: 3 Anxiety: 5 Agitation: 5 Paroxysmal Sweats: 3 Orientation: 0-Oriented Tacttile Disturbances: 1-Very Mild Itch/Numbness Auditory Disturbances: 0-None Visual Disturbances: 0-None Headache: 0-None Present CIWA-Ar Total Score: 17 BHS COWS - Scale Resting Pulse: 1= [place] 81-100 Sweatin=Flushed/Facial Moisture Restless Observation: 1= Difficult to Sit Still Pupil Size: 0= Normal to Room Light Bone or Joint Aches: 1= Mild Discomfort Runny Nose/ Eye Tearin= Runny Nose/Eyes GI Upset > 30mins: 1= Stomach Cramp Tremor Observation of Outstretched Hands: 2= Slight Tremor Visible Yawning Observation: 1= 1-2x During Session Anxiety or Irritability: 2=Irritable/Anxious Goose Flesh Skin: 0=Smooth Skin COWS Score: 13 S Progress Note (SOAP) Subjective: Anxiety,tremors,sweating,interrupted sleep,restless,body aches Objective: 05/20/17 14:53 Vital Signs - 8 hr 05/20/17 05/20/17 05/20/17 07:11 11:53 14:15 Temperature 96.4 F L 98 F 97.2 F L Pulse Rate 75 95 H 89 Respiratory 18 18 18 Rate Blood Pressure 102/57 95/65 105/71 Laboratory Tests 05/19/17 05/19/17 05/19/17 07:50 07:50 07:50 WBC 7.7 RBC 4.74 Hgb 14.1 Hct 43.3 MCV 91.4 MCH 29.7 MCHC 32.6 RDW 13.7 Plt Count 300 MPV 8.5 Sodium 142 Potassium 4.8 Chloride 107 Carbon Dioxide 28 Anion Gap 7 L BUN 13 D Creatinine 0.7 Creat Clearance w eGFR > 60 Random Glucose 73 L Calcium 9.3 Total Bilirubin 0.3 AST 8 L D ALT 18 D Alkaline Phosphatase 72 Total Protein 6.8 Albumin 3.3 L Urine Color Urine Appearance Urine pH Ur Specific [place] Urine Protein Urine Glucose (UA) Urine Ketones Urine Blood Urine Nitrite Urine Bilirubin Urine Urobilinogen RPR Titer Nonreactive 05/20/17 10:00 WBC RBC Hgb Hct MCV MCH MCHC RDW Plt Count MPV Sodium Potassium Chloride Carbon Dioxide Anion Gap BUN Creatinine Creat Clearance w eGFR Random Glucose Calcium Total Bilirubin AST ALT Alkaline Phosphatase Total Protein Albumin Urine Color Yellow Urine Appearance Cloudy Urine pH 5.0 Ur Specific [place] 1.016 Urine Protein Negative Urine Glucose (UA) Negative Urine Ketones Negative Urine Blood 2+ H Urine Nitrite Negative Urine Bilirubin Negative Urine Urobilinogen Negative RPR Titer labs noted Assessment: 05/20/17 14:53 Withdrawal sx. Plan: Continue detox
[2017-05-20 14:56] LABS: URINE RBC 4 /hpf (0-3); URINE WBC 48 /hpf (3-5)
--- NOTE | 2017-05-20 17:15 | EKG ---
Test Reason : Blood Pressure : / mmHG Vent. Rate : 092 BPM Atrial Rate : 092 BPM P-R Int : 132 ms QRS Dur : 068 ms QT Int : 348 ms P-R-T Axes : 055 020 026 degrees QTc Int : 430 ms NORMAL SINUS RHYTHM NORMAL ECG WHEN COMPARED WITH ECG OF 23-FEB-2017 12:09, VENT. RATE HAS INCREASED BY 31 BPM Confirmed by JESSICA VILLALOBOS MD ([id number]) on 05/20/2017 5:15:10 PM Referred By: LOIDA LINARES Confirmed By:JESSICA VILLALOBOS MD
[2017-05-20 19:53] LABS: URINE LEUK ESTERASE 2+ (NEGATIVE)
[2017-05-20] MEDS: traZODone HCL 50 MG TABLET (FP) PO SCH (22:25)
[2017-05-20] MEDS: THIAMINE HCL 100 MG TABLET (FP) PO SCH (22:25)
[2017-05-20] MEDS: chlordiazePOXIDE 5 MG CAPSULE PO SCH (22:25)
[2017-05-20] MEDS: OLANZapine 7.5 MG TABLET PO SCH (22:52)
[2017-05-21] MEDS: chlordiazePOXIDE 5 MG CAPSULE PO SCH ×3 (05:53→17:08)
[2017-05-21] MEDS: METHADONE HCL 5 MG TABLET (FOR DETOX USE ONLY) PO SCH (10:56)
[2017-05-21] MEDS: PRENATAL VITAMINS W/ FOLIC ACID TABLET (FP) PO SCH (10:56)
--- NOTE | 2017-05-21 11:33 | PN ---
BHS Progress Note (SOAP) Subjective: INTERRUPTED SLEEP, SWEATS, TIRED Objective: 05/21/17 11:32 Vital Signs Temperature 97.9 F 05/21/17 09:48 Pulse Rate 78 05/21/17 09:48 Respiratory Rate 18 05/21/17 09:48 Blood Pressure 109/73 05/21/17 09:48 O2 Sat by Pulse Oximetry (%) Laboratory Tests 05/19/17 05/19/17 05/19/17 07:50 07:50 07:50 WBC 7.7 RBC 4.74 Hgb 14.1 Hct 43.3 MCV 91.4 MCH 29.7 MCHC 32.6 RDW 13.7 Plt Count 300 MPV 8.5 Sodium 142 Potassium 4.8 Chloride 107 Carbon Dioxide 28 Anion Gap 7 L BUN 13 D Creatinine 0.7 Creat Clearance w eGFR > 60 Random Glucose 73 L Calcium 9.3 Total Bilirubin 0.3 AST 8 L D ALT 18 D Alkaline Phosphatase 72 Total Protein 6.8 Albumin 3.3 L Urine Color Urine Appearance Urine pH Ur Specific [place] Urine Protein Urine Glucose (UA) Urine Ketones Urine Blood Urine Nitrite Urine Bilirubin Urine Urobilinogen Ur Leukocyte Esterase Urine WBC (Auto) Urine RBC (Auto) Ur Epithelial Cells RPR Titer Nonreactive 05/20/17 10:00 WBC RBC Hgb Hct MCV MCH MCHC RDW Plt Count MPV Sodium Potassium Chloride Carbon Dioxide Anion Gap BUN Creatinine Creat Clearance w eGFR Random Glucose Calcium Total Bilirubin AST ALT Alkaline Phosphatase Total Protein Albumin Urine Color Yellow Urine Appearance Cloudy Urine pH 5.0 Ur Specific [place] 1.016 Urine Protein Negative Urine Glucose (UA) Negative Urine Ketones Negative Urine Blood 2+ H Urine Nitrite Negative Urine Bilirubin Negative Urine Urobilinogen Negative Ur Leukocyte Esterase 2+ H Urine WBC (Auto) 48 Urine RBC (Auto) 4 Ur Epithelial Cells Moderate RPR Titer PT AOX3 IN AND AMBULATING Assessment: 05/21/17 11:32 WITHDRAWAL SX ABN. U/A Plan: CONT. DETOX INCREASE FLUIDS U/A U/CX.
[2017-05-21 19:38] LABS: URINE APPEARANCE SLCLOUDY; URINE BILIRUBIN NEGATIVE (NEGATIVE); URINE BLOOD NEGATIVE (NEGATIVE); URINE COLOR YELLOW; URINE GLUCOSE (UA) NEGATIVE (NEGATIVE); URINE KETONE NEGATIVE (NEGATIVE); URINE NITRITE NEGATIVE (NEGATIVE); URINE PROTEIN NEGATIVE (NEGATIVE); URINE UROBILINOGEN NEGATIVE mg/dL (0.2-1.0)
[2017-05-21 20:01] LABS: URINE LEUK ESTERASE 1+ (NEGATIVE)
[2017-05-21 20:04] LABS: URINE BACTERIA RARE /hpf (NONE SEEN); URINE MUCUS RARE; URINE RBC 3 /hpf (0-3); URINE WBC 26 /hpf (3-5)
[2017-05-21] MEDS: chlordiazePOXIDE HCL 10 MG CAPSULE PO SCH (22:25)
[2017-05-21] MEDS: THIAMINE HCL 100 MG TABLET (FP) PO SCH (22:25)
[2017-05-21] MEDS: OLANZapine 7.5 MG TABLET PO SCH (22:25)
[2017-05-21] MEDS: traZODone HCL 50 MG TABLET (FP) PO SCH (22:25)
[2017-05-21 22:45] LABS: URINE LEUK ESTERASE TRACE (NEGATIVE)
[2017-05-22] MEDS: chlordiazePOXIDE HCL 10 MG CAPSULE PO SCH ×3 (05:40→17:34)
[2017-05-22] MEDS ORDERED: METHADONE HCL 10 MG TABLET (FOR DETOX USE ONLY) PO SCH (10:00)
[2017-05-22] MEDS ORDERED: SODIUM CHLORIDE NASAL SPRAY 44 ML BOTTLE NS PRN (10:08)
[2017-05-22] MEDS: PRENATAL VITAMINS W/ FOLIC ACID TABLET (FP) PO SCH (10:19)
[2017-05-22] MEDS: IBUPROFEN 400 MG TABLET (FP) PO PRN (11:25)
[2017-05-22] MEDS ORDERED: hydrOXYzine HCL 25 MG TABLET (FP) PO PRN (13:22)
[2017-05-22] MEDS: CYCLOBENZAPRINE HCL 5 MG TABLET PO SCH ×2 (14:05→22:15)
--- NOTE | 2017-05-22 15:03 | PN ---
BHS Progress Note (SOAP) Subjective: Nausea, tingling in legs, sweating, stuffy nose, throat hurts, muscle spasm, anxious Objective: 05/22/17 15:00 Last Vital Signs Temp Pulse Resp BP Pulse Ox 96.4 F L 98 H 20 118/68 05/22/17 14:07 05/22/17 14:07 05/22/17 14:07 05/22/17 14:07 Laboratory Tests 05/19/17 05/19/17 05/19/17 07:50 07:50 07:50 WBC 7.7 RBC 4.74 Hgb 14.1 Hct 43.3 MCV 91.4 MCH 29.7 MCHC 32.6 RDW 13.7 Plt Count 300 MPV 8.5 Sodium 142 Potassium 4.8 Chloride 107 Carbon Dioxide 28 Anion Gap 7 L BUN 13 D Creatinine 0.7 Creat Clearance w eGFR > 60 Random Glucose 73 L Calcium 9.3 Total Bilirubin 0.3 AST 8 L D ALT 18 D Alkaline Phosphatase 72 Total Protein 6.8 Albumin 3.3 L Urine Color Urine Appearance Urine pH Ur Specific [place] Urine Protein Urine Glucose (UA) Urine Ketones Urine Blood Urine Nitrite Urine Bilirubin Urine Urobilinogen Ur Leukocyte Esterase Urine WBC (Auto) Urine RBC (Auto) Ur Epithelial Cells Urine Bacteria Urine Mucus RPR Titer Nonreactive 05/20/17 05/21/17 10:00 19:00 WBC RBC Hgb Hct MCV MCH MCHC RDW Plt Count MPV Sodium Potassium Chloride Carbon Dioxide Anion Gap BUN Creatinine Creat Clearance w eGFR Random Glucose Calcium Total Bilirubin AST ALT Alkaline Phosphatase Total Protein Albumin Urine Color Yellow Yellow Urine Appearance Cloudy Slcloudy Urine pH 5.0 5.0 Ur Specific [place] 1.016 1.018 Urine Protein Negative Negative Urine Glucose (UA) Negative Negative Urine Ketones Negative Negative Urine Blood 2+ H Negative Urine Nitrite Negative Negative Urine Bilirubin Negative Negative Urine Urobilinogen Negative Negative Ur Leukocyte Esterase 2+ H Trace H D Urine WBC (Auto) 48 26 Urine RBC (Auto) 4 3 Ur Epithelial Cells Moderate Rare Urine Bacteria Rare Urine Mucus Rare RPR Titer Labs noted Assessment: 05/22/17 15:01 Withdrawal symptoms Plan: Continue detox Encouraged to drink lots of water for hydration [place] spray prn for nasal congestion Flexeril 5mg PO TID PRN for muscle spasm Vistaril 25mg PO q6hr prn for anxiety
[2017-05-22] MEDS: THIAMINE HCL 100 MG TABLET (FP) PO SCH (22:15)
[2017-05-22] MEDS: OLANZapine 7.5 MG TABLET PO SCH (22:15)
[2017-05-22] MEDS: traZODone HCL 50 MG TABLET (FP) PO SCH (22:15)
[2017-05-23] MEDS: CYCLOBENZAPRINE HCL 5 MG TABLET PO SCH ×2 (05:21→14:29)
[2017-05-23] MEDS: IBUPROFEN 400 MG TABLET (FP) PO PRN (05:22)
[2017-05-23] MEDS ORDERED: METHADONE HCL 5 MG TABLET (FOR DETOX USE ONLY) PO SCH (06:00)
--- NOTE | 2017-05-23 08:29 | DS ---
[facility] Detox Discharge Summary Admission Date: 05/18/17 Discharge Date: 05/23/17 - History Present History: Alcohol Dependence, Cannabis Dependence, Cocaine Dependence, Opioid Dependence, Sedative Dependence - Physical Exam Results Vital Signs: Vital Signs Temperature 98 F 05/23/17 05:50 Pulse Rate 91 H 05/23/17 05:50 Respiratory Rate 18 05/23/17 05:50 Blood Pressure 116/73 05/23/17 05:50 O2 Sat by Pulse Oximetry (%) - Treatment Hospital Course: Detox Protocol Followed, Detoxed Safely, Responded well, Discharged Condition Good, Rehab Referral Accepted - Medication Discharge Medications: Ambulatory Orders Trazodone HCl 100 mg PO HS 05/18/17 Olanzapine [Zyprexa] 10 mg PO HS #30 tablet 05/19/17 Trazodone HCl [Desyrel -] 50 mg PO HS #30 tablet 05/19/17 - Diagnosis (1) Alcohol dependence with uncomplicated withdrawal Current Visit: Yes Status: Chronic (2) Cannabis dependence Current Visit: Yes Status: Chronic (3) Cocaine dependence, uncomplicated Current Visit: Yes Status: Chronic (4) Nicotine dependence Current Visit: Yes Status: Chronic Qualifiers: Nicotine product type: cigarettes Substance use status: uncomplicated Qualified Code(s): F17.210 - Nicotine dependence, cigarettes, uncomplicated (5) Opioid dependence with withdrawal Current Visit: Yes Status: Chronic (6) Bipolar disorder Current Visit: Yes Status: Chronic Qualifiers: Active/Remission status: remission status unspecified Qualified Code(s): F31.9 - Bipolar disorder, unspecified - AMA Did Patient Leave Against Medical Advice: No
[2017-05-23] MEDS: PRENATAL VITAMINS W/ FOLIC ACID TABLET (FP) PO SCH (11:03)
[2017-05-23 14:35] VITALS: BP 120/69; PULSE 96; TEMP 97.5
== END 2017-05-23 15:28 | disposition other institution (70) | DRG 773 ==
LOC: YASAS 14:18 → Y6N 18:15
PROVIDERS: ADMIT Internal Medicine; ATTEND Internal Medicine
PROC: HZ2ZZZZ Detoxification Services for Substance Abuse Treatment (ICD-10-PCS; principal; 2017-05-18)
DX: F11.23 Opioid dependence with withdrawal (principal); F10.230 Alcohol dependence with withdrawal, uncomplicated; F14.20 Cocaine dependence, uncomplicated; F12.20 Cannabis dependence, uncomplicated; F17.210 Nicotine dependence, cigarettes, uncomplicated; F32.9 Major depressive disorder, single episode, unspecified; F31.9 Bipolar disorder, unspecified; F19.24 Other psychoactive substance dependence with psychoactive substance-induced mood disorder; G47.00 Insomnia, unspecified; R82.90 Unspecified abnormal findings in urine
CPT/HCPCS: 36415; 80053; 81003; 81015; 85027; 86593; 87086; 93005; 93010

== ENCOUNTER 2017-05-23 15:34 | Inpatient (IN) | payer OTHER ==
[2017-05-23] MEDS ORDERED: NICOTINE 14 MG/24 HOURS TOPICAL PATCH TD PRN (16:32)
[2017-05-23] MEDS ORDERED: MAGNESIUM HYDROX 2400MG/30ML ORAL SUSPENSION 30 ML CUP PO PRN (16:32)
[2017-05-23] MEDS ORDERED: MAGNESIUM CITRATE 300 ML BOTTLE PO PRN (16:32)
[2017-05-23] MEDS ORDERED: MENTHOL/PHENOL 1 EACH UD MM PRN (16:32)
[2017-05-23] MEDS ORDERED: ACETAMINOPHEN 325 MG TABLET (FP) PO PRN (16:32)
[2017-05-23] MEDS ORDERED: LOPERAMIDE HCL 2 MG CAPSULE PO PRN (16:32)
[2017-05-23] MEDS ORDERED: guaiFENesin/D-METHORPHAN HB 10 ML UNIT-DOSE CUPS PO PRN (16:32)
[2017-05-23] MEDS ORDERED: MAG HYDROX/AL HYDROX/SIMETH 30 ML UNIT-DOSE CUP PO PRN (16:32)
--- NOTE | 2017-05-23 16:32 | HP ---
[facility] Rehab Assess/Revision - Admission History Admitted to Rehab from: [facility] Date of Admission to Rehab: 05/23/17 - Findings Detox History & Physical reviewed: Yes Concur with findings: Yes Comments/Additional Findings: transferred from detox to rehab admission as per protocol Inpatient Rehab Admission - Initial Determination Are CD services needed?: Yes Free of communicable disease: Yes Not in need of hospitalization: Yes - Rehab Admission Criteria Previous failed treatment: Yes Poor recovery environment: Yes Comorbidities: Yes Lacks judgement: No Patient is meeting Inpatient Rehab admission criteria:: Yes
[2017-05-23 17:59] VITALS: BMI 33.1
[2017-05-23] MEDS: P-EPHED 60MG/TRIPROLIDI 2.5MG TABLET PO PRN (18:37)
[2017-05-23] MEDS: OLANZapine 10 MG TABLET PO SCH (21:31)
[2017-05-23] MEDS: traZODone HCL 50 MG TABLET (FP) PO SCH (21:31)
[2017-05-23] MEDS: THIAMINE HCL 100 MG TABLET (FP) PO SCH (21:31)
[2017-05-23] MEDS ORDERED: BACLOFEN 10 MG TABLET (FP) PO ONE (22:45)
[2017-05-24] MEDS: IBUPROFEN 400 MG TABLET (FP) PO PRN ×2 (01:00→21:19)
[2017-05-24] MEDS: PRENATAL VITAMINS W/ FOLIC ACID TABLET (FP) PO SCH (09:43)
[2017-05-24] MEDS ORDERED: CYCLOBENZAPRINE HCL 5 MG TABLET PO PRN (10:26)
[2017-05-24] MEDS: NICOTINE POLACRILEX 2 MG GUM BUC PRN (14:38)
[2017-05-24] MEDS: THIAMINE HCL 100 MG TABLET (FP) PO SCH (21:18)
[2017-05-24] MEDS: traZODone HCL 50 MG TABLET (FP) PO SCH (21:18)
[2017-05-24] MEDS: OLANZapine 10 MG TABLET PO SCH (21:18)
[2017-05-24] MEDS: P-EPHED 60MG/TRIPROLIDI 2.5MG TABLET PO PRN (22:43)
[2017-05-25] MEDS: IBUPROFEN 400 MG TABLET (FP) PO PRN (04:09)
[2017-05-25] MEDS: PRENATAL VITAMINS W/ FOLIC ACID TABLET (FP) PO SCH (10:28)
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
--- NOTE | 2017-05-25 12:48 | PN ---
S Progress Note (SOAP) Subjective: c/o left ear pain since 2 weeks prior to admission that went from being intermittent to constant for one day. feels like a throbbing in her ear denies fever, ear discharge, tinnitus, change in her hearing, exacerbating or alleviating factors. also c/o left thigh numbness and pain, worse at night when laying in bed. occasionally occurs when she is walking, lasts few minutes, gets better with hot shower or "pounding" with her fits on her anterior thigh. it has been occurring for past 2 weeks. it has not prevented her from completing her daily activities denies parasthesias, lower back trauma, falls, loss of muscle tone, leg trauma Objective: HEENT: AT/NC, no sinus tenderness, no lad, thyromegaly, normal jaw alignment/ movement, b/l TM's intact without bulging/erythema, otoscope exam without any ear discharge/erythema. right ear without pain when pulling ear or with palpation around ear. left ear pain when palpating behind ear, no palpable swelling/lad in the ear. b/l mild nonnodular/nontender thyromegaly LUNGS: CTAB CV; s1, s2, no mrg ABd; soft, nd, nt NEURO: CN2-12 intact, gait normal, FROM in all joints, no joint swelling/ tenderness, 5/5 motor strength in all joints with flexion/extension, adduction, abduction. 2+ radial and dp pulses. sensation intact and equal on face, arms, hands, lower legs. left nontender to palpation Assessment: 31 yr old woman with polysubstance dependence c/o ear pain and left thigh pain. Plan: monitor ear pain, currently no pe findings of infection in mouth or ear, pt is afebrile start gabapentin 100mg tid and naprosyn bid for ear and leg pain
[2017-05-25] MEDS: GABAPENTIN 100 MG CAPSULE (FP) PO SCH ×2 (14:10→21:20)
[2017-05-25] MEDS: PANTOPRAZOLE 40 MG TABLET (FP) PO SCH (18:26)
[2017-05-25] MEDS: traZODone HCL 50 MG TABLET (FP) PO SCH (21:20)
[2017-05-25] MEDS: OLANZapine 10 MG TABLET PO SCH (21:20)
[2017-05-25] MEDS: THIAMINE HCL 100 MG TABLET (FP) PO SCH (21:20)
[2017-05-25] MEDS: NAPROXEN 500 MG TABLET (FP) PO SCH (21:21)
[2017-05-26] MEDS: GABAPENTIN 100 MG CAPSULE (FP) PO SCH ×3 (06:34→21:11)
[2017-05-26] MEDS: PANTOPRAZOLE 40 MG TABLET (FP) PO SCH (09:51)
[2017-05-26] MEDS: NAPROXEN 500 MG TABLET (FP) PO SCH ×2 (09:51→21:12)
[2017-05-26] MEDS: PRENATAL VITAMINS W/ FOLIC ACID TABLET (FP) PO SCH (09:51)
[2017-05-26] MEDS: NICOTINE POLACRILEX 2 MG GUM BUC PRN ×2 (12:59→22:43)
[2017-05-26] MEDS: THIAMINE HCL 100 MG TABLET (FP) PO SCH (21:11)
[2017-05-26] MEDS: traZODone HCL 50 MG TABLET (FP) PO SCH (21:11)
[2017-05-26] MEDS: OLANZapine 10 MG TABLET PO SCH (21:11)
[2017-05-27] MEDS: P-EPHED 60MG/TRIPROLIDI 2.5MG TABLET PO PRN (00:35)
[2017-05-27] MEDS: GABAPENTIN 100 MG CAPSULE (FP) PO SCH ×3 (06:21→21:12)
[2017-05-27] MEDS: PANTOPRAZOLE 40 MG TABLET (FP) PO SCH (10:08)
[2017-05-27] MEDS: NAPROXEN 500 MG TABLET (FP) PO SCH ×2 (10:08→21:12)
[2017-05-27] MEDS: PRENATAL VITAMINS W/ FOLIC ACID TABLET (FP) PO SCH (10:09)
[2017-05-27] MEDS ORDERED: PT OWN MED DRAWER 7, Y5N ONE (12:41)
[2017-05-27] MEDS: traZODone HCL 50 MG TABLET (FP) PO SCH (21:12)
[2017-05-27] MEDS: THIAMINE HCL 100 MG TABLET (FP) PO SCH (21:12)
[2017-05-27] MEDS: OLANZapine 10 MG TABLET PO SCH (21:12)
[2017-05-28] MEDS: P-EPHED 60MG/TRIPROLIDI 2.5MG TABLET PO PRN (00:31)
[2017-05-28] MEDS: GABAPENTIN 100 MG CAPSULE (FP) PO SCH ×3 (06:33→21:18)
[2017-05-28] MEDS ORDERED: PT OWN MED DRAWER 7, Y5N ONE (06:51)
[2017-05-28 07:09] VITALS: PULSE 98
[2017-05-28] MEDS: PANTOPRAZOLE 40 MG TABLET (FP) PO SCH (10:11)
[2017-05-28] MEDS: PRENATAL VITAMINS W/ FOLIC ACID TABLET (FP) PO SCH (10:11)
[2017-05-28] MEDS: NAPROXEN 500 MG TABLET (FP) PO SCH ×2 (10:11→21:18)
[2017-05-28] MEDS: NICOTINE POLACRILEX 2 MG GUM BUC PRN (13:22)
[2017-05-28] MEDS: OLANZapine 10 MG TABLET PO SCH (21:18)
[2017-05-28] MEDS: traZODone HCL 50 MG TABLET (FP) PO SCH (21:18)
[2017-05-28] MEDS: THIAMINE HCL 100 MG TABLET (FP) PO SCH (21:18)
[2017-05-29] MEDS: GABAPENTIN 100 MG CAPSULE (FP) PO SCH (06:25)
[2017-05-29 07:18] VITALS: BP 108/76; TEMP 98.1
--- NOTE | 2017-05-29 10:07 | PN ---
[facility] Progress Note Note: Called by nursing staff to report that patient wanted to leave against medical advice. Scripts for 30 days supply of her medications(Olanzapine 10 mg po HS and Trazadone 50 mg po HS) were electronically transmitted to [facility] at [address] [place] [address]
== END 2017-05-29 08:48 | disposition left against medical advice (07) | DRG 770 ==
LOC: YASAS 15:34 → Y3E 15:35
PROVIDERS: ADMIT Psychiatry & Neurology Psychiatry; ATTEND Psychiatry & Neurology Psychiatry
PROC: HZ42ZZZ Group Counseling for Substance Abuse Treatment, Cognitive-Behavioral (ICD-10-PCS; principal; 2017-05-23)
DX: F11.20 Opioid dependence, uncomplicated (principal); F10.20 Alcohol dependence, uncomplicated; F13.20 Sedative, hypnotic or anxiolytic dependence, uncomplicated; F14.20 Cocaine dependence, uncomplicated; F12.20 Cannabis dependence, uncomplicated; F31.9 Bipolar disorder, unspecified; M79.652 Pain in left thigh; H92.02 Otalgia, left ear; R20.0 Anesthesia of skin
CPT/HCPCS: 36415; 87389; J0475